=== PATIENT | female | born 1955 | race Caucasian/White ===

== ENCOUNTER 2022-03-12 13:32 | Emergency (ER) | payer OTHER ==
[~2022-03-12] VITALS: Ht 157.5 cm; Wt 62.7 kg
[2022-03-12 14:58] LABS: BASOPHIL 0.2 % (0-2); EOSINOPHIL 0.1 % (0-7); HGB 15.9 g/dl (12.5-16.0); LYMPHOCYTE 15.6 % (15-48); MCH 29.7 pg (25.0-31.0); MCHC 32.4 g/dL (32.0-36.0); MCV 91.6 fL (78.0-100.0); MONOCYTE 11.2 % (0-12); MPV 10.8 fL (6.0-9.5); NEUTROPHIL 72.2 % (41-80); NRBC 0; PLT 281 K/uL (150-400); RBC 5.35 M/uL (4.20-5.40); RDW 14.8 % (11.5-14.0); WBC 12.1 K/uL (4.0-10.5)
[2022-03-12 16:04] LABS: ALBUMIN 3.7 g/dL (3.4-5.0); ALKALINE PHOSHATASE 132 U/L (46-116); ALT >3500 U/L (14-59); BUN 39 mg/dL (7-18); BUN/CREAT RATIO (CALC) 37.5 RATIO; CHLORIDE 90 mmol/L (98-107); CO2 (BICARBONATE) 19 mmol/L (21-32); CREATININE 1.04 mg/dL (0.51-0.95); GLOBULIN (CALCULATION) 2.7 g/dL; GLUCOSE 203 mg/dL (74-106); MAGNESIUM 1.9 mg/dL (1.8-2.4); POTASSIUM 4.1 mmol/L (3.5-5.1); TOTAL PROTEIN 6.4 g/dL (6.4-8.2)
[2022-03-12 16:06] LABS: AST >2000 U/L (15-37)
[2022-03-12 16:54] LABS: INR 2.91 (0.9-1.2); PROTHROMBIN TIME 29.4 SECONDS (11.8-13.4); PTT 30.2 SECONDS (24.4-34.7)
[2022-03-12 20:25] LABS: INR 3.54 (0.9-1.2); PROTHROMBIN TIME 34.4 SECONDS (11.8-13.4)
[2022-03-12 21:01] LABS: ALKALINE PHOSHATASE 106 U/L (46-116); ALT >3500 U/L (14-59); BILIRUBIN - TOTAL 2.5 mg/dL (0.2-1.0); BUN 36 mg/dL (7-18); BUN/CREAT RATIO (CALC) 42.9 RATIO; CHLORIDE 95 mmol/L (98-107); CO2 (BICARBONATE) 22 mmol/L (21-32); CREATININE 0.84 mg/dL (0.51-0.95); GLOBULIN (CALCULATION) 2.2 g/dL; GLUCOSE 177 mg/dL (74-106); POTASSIUM 3.8 mmol/L (3.5-5.1); TOTAL PROTEIN 5.2 g/dL (6.4-8.2)
[2022-03-13 06:26] LABS: HCT 40.3 % (37.0-47.0); MCH 30.4 pg (25.0-31.0); MCHC 34.7 g/dL (32.0-36.0); MPV 10.4 fL (6.0-9.5); RBC 4.6 M/uL (4.20-5.40); RDW 14.4 % (11.5-14.0); WBC 9.2 K/uL (4.0-10.5)
[2022-03-13 06:31] LABS: MCV 87.6 fL (78.0-100.0)
[2022-03-13 06:35] LABS: INR 3.07 (0.9-1.2); PROTHROMBIN TIME 30.7 SECONDS (11.8-13.4)
[2022-03-13 07:42] LABS: ALBUMIN 2.9 g/dL (3.4-5.0); ALKALINE PHOSHATASE 136 U/L (46-116); BILIRUBIN - TOTAL 2.1 mg/dL (0.2-1.0); BUN 32 mg/dL (7-18); BUN/CREAT RATIO (CALC) 50.8 RATIO; CHLORIDE 91 mmol/L (98-107); CO2 (BICARBONATE) 21 mmol/L (21-32); CREATININE 0.63 mg/dL (0.51-0.95); GLOBULIN (CALCULATION) 2.4 g/dL; GLUCOSE 220 mg/dL (74-106); TOTAL PROTEIN 5.3 g/dL (6.4-8.2)
[2022-03-13 08:23] LABS: ALT >3500 U/L (14-59)
[2022-03-13 08:27] LABS: AST >2000 U/L (15-37)
[2022-03-13 11:08] LABS: IRON % SATURATION 33.1 %SAT (20-50)
[2022-03-13 17:36] LABS: BUN/CREAT RATIO (CALC) 39.7 RATIO; CREATININE 0.63 mg/dL (0.51-0.95); POTASSIUM 3.4 mmol/L (3.5-5.1)
[2022-03-13 22:15] LABS: BASOPHIL 0.4 % (0-2); EOSINOPHIL 0.7 % (0-7); HCT 45.4 % (37.0-47.0); HGB 15.6 g/dl (12.5-16.0); LYMPHOCYTE 16.7 % (15-48); MCH 29.7 pg (25.0-31.0); MCHC 34.4 g/dL (32.0-36.0); MCV 86.3 fL (78.0-100.0); MONOCYTE 3.1 % (0-12); MPV 10.7 fL (6.0-9.5); NEUTROPHIL 78.6 % (41-80); NRBC 0.4; PLT 153 K/uL (150-400); RBC 5.26 M/uL (4.20-5.40); RDW 14.1 % (11.5-14.0); WBC 8.5 K/uL (4.0-10.5)
[2022-03-13 22:28] LABS: INR 2.09 (0.9-1.2); PROTHROMBIN TIME 22.6 SECONDS (11.8-13.4)
[2022-03-13 22:45] LABS: ALBUMIN 3.2 g/dL (3.4-5.0); ALKALINE PHOSHATASE 140 U/L (46-116); ALT >3500 U/L (14-59); AST 1700 U/L (15-37); BILIRUBIN - TOTAL 2.2 mg/dL (0.2-1.0); BUN 21 mg/dL (7-18); BUN/CREAT RATIO (CALC) 26.9 RATIO; CHLORIDE 95 mmol/L (98-107); CO2 (BICARBONATE) 26 mmol/L (21-32); CREATININE 0.78 mg/dL (0.51-0.95); GLOBULIN (CALCULATION) 2.7 g/dL; GLUCOSE 170 mg/dL (74-106); POTASSIUM 2.9 mmol/L (3.5-5.1); TOTAL PROTEIN 5.9 g/dL (6.4-8.2)
[2022-03-14 04:44] LABS: HCT 43.2 % (37.0-47.0); HGB 14.8 g/dl (12.5-16.0); MCHC 34.3 g/dL (32.0-36.0); MCV 87.4 fL (78.0-100.0); MPV 9.9 fL (6.0-9.5); RBC 4.94 M/uL (4.20-5.40); RDW 14.2 % (11.5-14.0); WBC 7.7 K/uL (4.0-10.5)
[2022-03-14 04:56] LABS: INR 1.82 (0.9-1.2); PROTHROMBIN TIME 20.3 SECONDS (11.8-13.4)
[2022-03-14 05:10] LABS: ALKALINE PHOSHATASE 127 U/L (46-116); ALT >3500 U/L (14-59); AST >2000 U/L (15-37); BUN 20 mg/dL (7-18); BUN/CREAT RATIO (CALC) 30.3 RATIO; CHLORIDE 99 mmol/L (98-107); CO2 (BICARBONATE) 27 mmol/L (21-32); CREATININE 0.66 mg/dL (0.51-0.95); GLOBULIN (CALCULATION) 2.2 g/dL; GLUCOSE 140 mg/dL (74-106); POTASSIUM 3.4 mmol/L (3.5-5.1); TOTAL PROTEIN 5.2 g/dL (6.4-8.2)
== END 2022-03-14 18:03 | disposition other institution (70) ==
LOC: FER 13:32
PROVIDERS: Emergency Medicine
DX: I48.91 Unspecified atrial fibrillation (principal); I48.92 Unspecified atrial flutter; I95.9 Hypotension, unspecified; K72.90 Hepatic failure, unspecified without coma; Z88.5 Allergy status to narcotic agent; Z87.891 Personal history of nicotine dependence; Z20.822 Contact with and (suspected) exposure to COVID-19
CPT/HCPCS: 36415; 36600; 71045; 71275; 80048; 80053; 82140; 82390; 82550; 82728; 82803; 83540; 83550; 83735; 83880; 84145; 84484; 85025; 85610; 85730; 93005; C9113; G0480; J0132; J1160; J3475; J3480; J7030; J7050; J7060; Q9967; U0002